=== PATIENT | female | born 1960 | race Caucasian/White ===

== ENCOUNTER 2019-04-26 16:04 | Emergency (ER) | payer OTHER, SELFPAY ==
--- NOTE | ~2019-04-26 | XR_ITS ---
EXAMINATION: XR foot RT min 3V DATE: 04/26/2019 16:30 INDICATION: Right foot pain TECHNIQUE: Dorsoplantar, lateral, and 2 oblique views of the right foot were obtained. COMPARISON: None. FINDINGS: There is no fracture, dislocation, or subluxation. Moderate osteoarthritis is noted at the first metatarsophalangeal joint. There is mild osteoarthritis in multiple interphalangeal joints. Mil d lateral foot soft tissue swelling is noted. IMPRESSION: 1. No acute osseous abnormality. Reviewed, dictated and finalized at location A.
[2019-04-26 16:12] VITALS: BP 146/93; PULSE 92; RESP 18; TEMP 36.4; O2SAT 97
--- NOTE | 2019-04-26 16:55 | ED.GENADULT ---
HPI - General Adult General Chief complaint: Extremity Injury, Lower Stated complaint: fall/rt foot injury History of Present Illness HPI narrative: Patient is a 58-year-old female who presents to the urgent care via POV for evaluation of right foot pain that initially occurred on 03/25/2019 after mis-stepping on stairs. She reports pain resolved although returned after yard work 8 days ago prompting today's visit. She reports her pain to be intermittent sharp and throbbing in nature. No relief with Aleve or applied ice. Denies rest, elevation, or compression therapy. Pertinent negatives: fever, chills, sweats, change in appetite, poor p.o. intake, malaise, calf tenderness, skin color changes, rash, warmth, swelling, numbness, tingling, loss of sensation, deformity, decreased range of motion, weakness, difficulty with ambulation/coordination, nausea, vomiting, lymphadenopathy, shortness of breath, chest pain, heart palpitations, and heart murmur. Related Data Home Medications Medication Instructions Recorded Confirmed No Home Medications 04/26/19 04/26/19 clonazepam 0.5 mg PO DAILY 04/26/19 04/26/19 naproxen sodium [Aleve] 220 mg PO Q12H PRN 04/26/19 04/26/19 venlafaxine [Effexor XR] 150 mg PO DAILY 04/26/19 04/26/19 Allergies Allergy/AdvReac Type Severity Reaction Status Date / Time metronidazole Allergy Unknown Rash Verified 04/26/19 16:19 Quinolones Allergy Unknown Rash Verified 04/26/19 16:19 Sulfa (Sulfonamide Allergy Unknown Rash Verified 04/26/19 16:19 Antibiotics) sulfamethizole Allergy Unknown Rash Verified 04/26/19 16:19 sulfamethoxazole Allergy Unknown Rash Verified 04/26/19 16:19 trimethoprim Allergy Unknown Rash Verified 04/26/19 16:19 Review of Systems Review of Systems: Narrative: All other systems reviewed and are negative [facility] Family History Family History Other Family history of malignant neoplasm Social History Social History Smoking status: Never smoker Alcohol intake: current Comments I have reviewed and agree with the patient's past medical, surgical, social, and family hx as documented by the RN. There is no relevant family history pertinent to the presenting complaint. Exam Narrative: Exam Narrative: GENERAL: Well-appearing, well-nourished, and in no acute distress. HEAD: Normocephalic, atraumatic. NECK: Supple. No Lymphadenopathy or nuchal rigidity appreciated. CHEST: Bilateral lung levin are clear to auscultation. No respiratory distress. No evidence of cough or pleuritic cp upon examination. HEART: Regular rate and rhythm. No murmur, gallop, or rub heard. EXTREMITIES: No evidence of injury, decreased ROM, swelling, cyanosis, hematoma, laceration, abrasion, deformity, rash, or puncture. Mild pain elicited with active and passive inversion range of motion. OM. No evidence of dislocation, ligament laxity, effusion, or pain at rest. Pulses palpable at 2+, strength 5/5, and cap refill < 3 seconds in affected extremity. DTRs normal. Gait normal. SKIN: Warm, dry, no rash. NEURO: No focal deficits. Alert and oriented x3. SPECIAL OBSERVATIONS: Smiling. Laughing. No evidence of discomfort. Course Vital Signs Vital signs: Vital Signs Temperature 97.6 F 04/26/19 16:12 Pulse Rate 92 04/26/19 16:12 Respiratory Rate 18 04/26/19 16:12 Blood Pressure 146/93 H 04/26/19 16:12 Pulse Oximetry 97 04/26/19 16:12 Temperature 97.6 F 04/26/19 16:12 Pulse Rate 92 04/26/19 16:12 Respiratory Rate 18 04/26/19 16:12 Blood Pressure 146/93 H 04/26/19 16:12 Pulse Oximetry 97 04/26/19 16:12 Medical Decision Making Medical Records Medical records reviewed: Yes I reviewed the patient's medical records. Vital Signs Vital Signs: Vital Signs Temperature 97.6 F 04/26/19 16:12 Pulse Rate 92 04/26/19 16:12 Respiratory Rate 18
== END 2019-04-26 17:04 | disposition home or self-care (01) ==
PROVIDERS: Emergency Provider Nurse Practitioner Family; PCP Internal Medicine
DX: S93.601A Unspecified sprain of right foot, initial encounter (principal); W10.9XXA Fall (on) (from) unspecified stairs and steps, initial encounter
CPT/HCPCS: 73630; 99213; G0463

== ENCOUNTER 2019-11-15 11:22 | Outpatient (CLI) | payer OTHER, SELFPAY ==
[2019-11-16 13:49] LABS: SARS-CoV-2 RNA PCR Negative
== END 2019-11-15 11:23 | disposition home or self-care (01) ==
LOC: CHSLAB 11:24
PROVIDERS: PCP Internal Medicine; Visit Provider Internal Medicine
DX: Z20.828 Contact with and (suspected) exposure to other viral communicable diseases (principal)
CPT/HCPCS: 87635; C9803; U0003

== ENCOUNTER 2019-12-08 15:32 | Outpatient (CLI) | payer OTHER, SELFPAY ==
[2019-12-09 13:32] LABS: SARS-CoV-2 RNA PCR Negative
== END 2019-12-08 15:33 | disposition home or self-care (01) ==
LOC: CHSLAB 15:35
PROVIDERS: PCP Internal Medicine; Visit Provider Internal Medicine
DX: Z20.828 Contact with and (suspected) exposure to other viral communicable diseases (principal)
CPT/HCPCS: 87635; C9803; U0003

== ENCOUNTER 2020-02-16 12:02 | Outpatient (CLI) | payer OTHER, SELFPAY ==
[2020-02-16 12:34] LABS: SARS-CoV-2 Ag Negative (Negative)
== END 2020-02-16 12:03 | disposition home or self-care (01) ==
PROVIDERS: PCP Internal Medicine; Visit Provider Internal Medicine
DX: Z20.822 Contact with and (suspected) exposure to COVID-19 (principal)
CPT/HCPCS: 87426; C9803

== ENCOUNTER 2020-02-16 12:42 | Outpatient (CLI) | payer OTHER, SELFPAY ==
[2020-02-17 19:23] LABS: SARS-CoV-2 RNA PCR Positive
== END 2020-02-16 12:43 | disposition home or self-care (01) ==
LOC: CHSLAB 12:44
PROVIDERS: PCP Internal Medicine; Visit Provider Internal Medicine
DX: U07.1 COVID-19 (principal)
CPT/HCPCS: C9803; U0003

== ENCOUNTER 2020-02-24 15:39 | Outpatient (CLI) | payer OTHER, SELFPAY ==
[2020-02-25 18:47] LABS: SARS-CoV-2 RNA PCR Negative
== END 2020-02-24 15:40 | disposition home or self-care (01) ==
LOC: CHSLAB 15:41
PROVIDERS: PCP Internal Medicine; Visit Provider Internal Medicine
DX: Z20.822 Contact with and (suspected) exposure to COVID-19 (principal)
CPT/HCPCS: C9803; U0003; U0005

== ENCOUNTER 2020-03-31 09:21 | Outpatient (CLI) | payer OTHER, SELFPAY ==
--- NOTE | ~2020-03-31 | US_ITS ---
EXAMINATION: US right upper quadrant DATE: 03/31/2020 10:15 INDICATION: Right upper quadrant pain, abnormal liver enzymes TECHNIQUE: Multiple grayscale and Doppler ultrasound images of the abdomen were obtained. COMPARISON: 03/07/[address], 11/02/2018 FINDINGS: The head, body, and tail of the pancreas are normal. There is a 1.7 cm cyst in the left hep atic lobe. The liver is otherwise normal with normal echogenicity and echotexture. No surface nodular ity. Normal hepatopetal flow in the main portal vein. There is a 4 mm stone in the gallbladder. There is no gallbladder wall thickening or pericholecystic fluid. The normal common bile duct measures 4 m m. There was no sonographic Narayan sign. IMPRESSION: 1. Cholelithiasis without evidence of cholecystitis. Reviewed, dictated and finalized at location A. 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
== END 2020-03-31 09:22 | disposition home or self-care (01) ==
LOC: CHSIMG 09:23
PROVIDERS: PCP Internal Medicine; Visit Provider Internal Medicine
DX: R94.5 Abnormal results of liver function studies (principal)
CPT/HCPCS: 76705

== ENCOUNTER 2020-06-10 09:59 | Outpatient (CLI) | payer OTHER, SELFPAY | END 2020-06-10 10:00 | disposition home or self-care (01) | LOC: CHSCOVIDVC 09:59 | PROVIDERS: PCP Internal Medicine | DX: Z23 Encounter for immunization (principal) | CPT/HCPCS: 0011A; 91301 ==

== ENCOUNTER 2020-07-08 10:05 | Outpatient (CLI) | payer OTHER, SELFPAY | END 2020-07-08 10:06 | disposition home or self-care (01) | LOC: CHSCOVIDVC 10:05 | PROVIDERS: PCP Internal Medicine | DX: Z23 Encounter for immunization (principal) | CPT/HCPCS: 0012A; 91301 ==

== ENCOUNTER 2020-11-01 08:20 | Outpatient (CLI) | payer OTHER, SELFPAY ==
--- NOTE | ~2020-11-01 | US_ITS ---
US abdomen complete EXAMINATION: US Abdomen Complete INDICATION: Hemorrhage of the rectus and anus PROCEDURE: Realtime High Resolution abdomen ultrasound. COMPARISON: No prior studies for comparison FINDINGS: There is a 4 mm gallbladder polyp. Common bile duct measures 4 mm. Liver echotexture is increased, consistent with fatty infiltration.. There is a 1.5 cm liver cyst. Pa ncreas within normal limits. Pancreatic tail is obscured by bowel gas. Spleen is unremarkeable. Yassine al echotexture is within normal limits bilaterally without hydronephrosis, contour deforming mass or renal stone. Right kidney measures 11.4 cm. Left kidney measures 10.9 cm. Visualized aspects of the aorta and IVC are within normal limits. Portal vein is patent. No sonograph ic Narayan's sign indicated by the technologist. IMPRESSION: 1: Gallbladder polyp measuring 4 mm. 2: Hepatic steatosis. Reviewed, dictated and finalized at location A.
== END 2020-11-01 08:21 | disposition home or self-care (01) ==
LOC: CHSIMG 08:21
PROVIDERS: PCP Internal Medicine; Visit Provider Internal Medicine
DX: K62.5 Hemorrhage of anus and rectum (principal)
CPT/HCPCS: 76700

== ENCOUNTER 2021-02-15 07:46 | Outpatient (CLI) | payer BC, SELFPAY ==
[2021-02-15 12:32] LABS: SARS-CoV-2 Ag Positive (Negative)
== END 2021-02-15 07:47 | disposition home or self-care (01) ==
LOC: CHSLAB 07:51
PROVIDERS: PCP Internal Medicine; Visit Provider Internal Medicine
DX: U07.1 COVID-19 (principal)
CPT/HCPCS: 87426; C9803

== ENCOUNTER → 2021-04-11 09:47 | Outpatient (CLI) | payer BC, SELFPAY ==
--- NOTE | ~2021-04-11 | XR_ITS ---
XR lumbar spine 2-3V DATE: 04/11/2021 10:19 INDICATION: Back pain TECHNIQUE: AP, lateral, coned lateral lumbosacral views COMPARISON: 05/28/2016 lumbar spine FINDINGS: Diffuse osteopenia. There is mild rotatory levoscoliosis of the lumbar spine. Acute lumbosacral angle. No fracture or bone destruction or spondylolisthesis. Lumbar and lumbosacral interspaces are relativ katlin preserved. The sacroiliac joints are intact. IMPRESSION: Osteopenia Scoliosis Reviewed, dictated and finalized at location A. SH OFF OPERATOR IMPRESSION: Osteopenia Scoliosis
--- NOTE | ~2021-04-11 | XR_ITS ---
XR thoracic spine 2V DATE: 04/11/2021 10:19 INDICATION: Back pain TECHNIQUE: Standing AP and lateral views COMPARISON: 05/28/2006 thoracic spine FINDINGS: Diffuse osteopenia. There is levoscoliosis of the lower cervical/upper thoracic spine and p rominent dextroscoliosis of the mid and lower thoracic spine. No fracture or dislocation or bone destruction is evident. The thoracic pedicles appear intact. No pa raspinal soft tissue thickening. IMPRESSION: Diffuse osteopenia. Prominent scoliosis Reviewed, dictated and finalized at location A. OING INSPECTOR
--- NOTE | ~2021-04-11 | XR_ITS ---
XR cervical spine 4-5V DATE: 04/11/2021 10:19 INDICATION: Neck pain radiating to right arm TECHNIQUE: AP, open-mouth, lateral, swimmer views, bilateral oblique views COMPARISON: None FINDINGS: C1 and C2 are normally aligned and the odontoid process is intact. No fracture or dislocation or locked facet. No prevertebral soft tissue swelling. No bony encroachmen t upon the neural foramina is detected. Cervical interspaces are well preserved. There is levoscoliosis of the upper thoracic spine and prominent dextroscoliosis of the mid to lower thoracic spine. IMPRESSION: No bony encroachment upon the cervical neural foramina Prominent thoracic scoliosis Reviewed, dictated and finalized at location A. NUE SETTLEMENTS ADMINISTRATOR
== END ==
PROVIDERS: PCP Internal Medicine; Visit Provider Chiropractor
DX: M54.2 Cervicalgia (principal); M41.86 Other forms of scoliosis, lumbar region; M85.88 Other specified disorders of bone density and structure, other site
CPT/HCPCS: 72050; 72070; 72100

== ENCOUNTER 2022-01-28 11:28 | Emergency (ER) | payer OTHER, SELFPAY ==
[2022-01-28 12:00] VITALS: BP 165/91; PULSE 86; RESP 16; TEMP 36.8; O2SAT 97
--- NOTE | 2022-01-28 12:22 | ED.GIBLEED ---
HPI - GI Bleed General Chief complaint: GI Bleed Stated complaint: bleeding from rectum after bowel movements Source: patient and RN notes reviewed Mode of arrival: ambulatory Limitations: no limitations History of Present Illness HPI Narrative: patient states that she has been having episodes for about 3 days where she has rectal bleeding. She has a bowel movement and then she can actually hear squirting blood into the toilet. It then stops on its own and the next time she has a bowel movement she has similar symptoms. She is having some mild cramping in her pelvis. She denies any nausea vomiting diarrhea. Denies any fever chills. complaint: gross hematochezia Onset (ago): day(s) (3) Pain Consistency: intermittent Severity: moderate Relieving factors: none Exacerbating factors: bowel movement Associated symptoms: abdominal pain (suprabic) Treatments Prior to Arrival: none Related Data Home Medications Medication Instructions Recorded Confirmed clonazepam 0.5 mg tablet 0.5 mg PO DAILY 04/26/19 01/28/22 venlafaxine 150 mg 150 mg PO DAILY 04/26/19 01/28/22 capsule,extended release 24 hr (Effexor XR) verapamil 120 mg 24 hr 120 mg PO DAILY 03/29/20 01/28/22 capsule,extended release Allergies Allergy/AdvReac Type Severity Reaction Status Date / Time metronidazole Allergy Unknown Rash Verified 01/28/22 12:06 Quinolones Allergy Unknown Rash Verified 01/28/22 12:06 Sulfa (Sulfonamide Allergy Unknown Rash Verified 01/28/22 12:06 Antibiotics) sulfamethizole Allergy Unknown Rash Verified 01/28/22 12:06 sulfamethoxazole Allergy Unknown Rash Verified 01/28/22 12:06 trimethoprim Allergy Unknown Rash Verified 01/28/22 12:06 Review of Systems Review of Systems: All systems reviewed & are unremarkable except as noted in HPI and below Constitutional: Constitutional: Denies chills and Denies fever(s) Gastrointestinal: Gastrointestinal: Denies constipation and Denies diarrhea PMFSH Past Medical History Medical History Anxiety Hypertension Surgical History Surgical History H/O shoulder surgery bilateral History of total abdominal hysterectomy Family History Family History (Updated 03/29/20 @ 09:41 by Vandana Orellana MA) Mother Hypertension Sibling Hypertension Other Family history of malignant neoplasm Social History Social History Smoking status: Never smoker Alcohol intake: current Substance use: never Exam Const: General: healthy appearing, no acute distress and alert Nutritional Appearance: well nourished Orientation/consciousness: patient oriented x3 Limitations: no limitations Other: female nurse in room during examination. HENMT: Head: normal to inspection Ears: external ears normal Mouth: Yes moist mucous membranes Eyes: Conjunctivae: conjunctivae normal Pupils: Equal, round and reactive pupils present EOM: EOMs intact bilaterally Neck: Neck: normal visual inspection Resp: Effort & Inspection: normal respiratory effort Auscultation: clear to auscultation bilaterally Cardio: Rate: regular rate Rhythm: regular rhythm GI: GI Palp: Yes Soft to palpation, Yes Tenderness to palpation present (GI) ( mild pelvis), Yes Guarding due to palpation present (GI) ( mild pelvis) and No Rebound tenderness present Auscultation: normal bowel sounds Rectal Exam: normal sphincter tone and Internal hemorrhoid(s) present Other: Disposable anoscope used for visualization friable rectal tissue above the pectinate line with a small tear in the mucosa. Nontender. Course Vital Signs Vital signs: Vital Signs Temperature 36.8 C 01/28/22 12:00 Pulse Rate 86 01/28/22 12:00 Respiratory Rate 16 01/28/22 12:00 Blood Pressure 165/91 H 01/28/22 12:00 Pulse Oximetry 97 01/28/22 12:00 Oxygen Delivery Room Air
--- NOTE | 2022-01-28 12:40 | PC.NURSE ---
Rn at bedside for chaperoned rectal exam
[2022-01-28 12:57] VITALS: BP 136/87; PULSE 86; RESP 16; TEMP 36.8; O2SAT 98
== END 2022-01-28 12:58 | disposition home or self-care (01) ==
PROVIDERS: Emergency Provider Emergency Medicine; PCP Internal Medicine
DX: K64.8 Other hemorrhoids (principal); F41.9 Anxiety disorder, unspecified; I10 Essential (primary) hypertension
CPT/HCPCS: 99283

== ENCOUNTER 2022-06-20 15:07 | Outpatient (CLI) | payer OTHER, SELFPAY ==
--- NOTE | ~2022-06-20 | XR_ITS ---
EXAMINATION: XR lumbar spine 2-3V DATE: 06/20/2022 15:27 INDICATION: Low back pain. Fall down stairs. TECHNIQUE: 3 views of lumbar spine were obtained. COMPARISON: Lumbar spine radiographs 04/11/2021, thoracic spine radiographs 04/11/2021, CT abdomen and pe lvis 04/28/2017 FINDINGS: There is 13 degrees levoscoliosis of lumbar spine. The T12 ribs are small. Vertebral body h eights are normal. There are chronic bilateral L5 pars defects. There is mildly decreased disc height at L1-L2, L2-L3, and L3-L4. There is multilevel mild facet joint osteoarthritis. IMPRESSION: 1. Mild lumbar spondylosis. 2. Lumbar levoscoliosis. 3. Chronic bilateral L5 pars defects. Reviewed, dictated and finalized at location E.
== END 2022-06-20 15:08 | disposition home or self-care (01) ==
PROVIDERS: PCP Internal Medicine; Visit Provider Nurse Practitioner Family
DX: M54.50 Low back pain, unspecified (principal); M43.06 Spondylolysis, lumbar region; M41.86 Other forms of scoliosis, lumbar region; M53.86 Other specified dorsopathies, lumbar region
CPT/HCPCS: 72100

== ENCOUNTER 2022-06-25 14:47 | Outpatient (RCR) | payer OTHER, SELFPAY ==
--- NOTE | 2022-06-25 16:12 | PTOPEVAL1 ---
Assessment and note entered by Jade Ornelas DPT Evaluation Information Assessment Status Evaluation Diagnosis low back pain Onset 06/21/22 Subjective Information Patient reports on 06/14/22 she reports she fell down 8 stairs and hit the concrete wall. She reports since then low back pain has signficantly increased. She reports she has scoliosis and has had chronic pain. She does report she had pain previously but was able to manage with pain meds to complete house hold and yard work. She reports that now the same pain meds are not helping her pain. She does report rotating ice and heat are giving her some relief. She reports difficuly with bending over, cleaning, cooking, and sitting for long periods of time. Reported Pain Level Pain Score 6: Self Report Assessment PT Clinical Summary Patient is a 61 year old female who presents to PT with low back pain following a fall down stairs. Patient demonstrates decreased B LE strength L>R, decreased lumbar ROM and tenderness at the lumbar paraspinals limiting her ability to cook, clean, and tolerate prolonged positioning. Patient would benefit from skilled PT to address impairments and return to PLOF. Plan of Care Interventions Electrical Stimulation,Gait Training,Hot Pack/Cold Pack,Manual Therapy,Mechanical Traction,Neuro Re- education,Patient/Caregiver Educati,Therapeutic Activities,Self-Care/Home Management PT Services Indicated Yes Treatment Frequency and 2x weekly for 12 visits Duration These treatments will address the objective and functional deficits as defined above. The patient will be advanced safely and appropriately in order for the patient to progress towards his/her prior level of function. Additional exercises will be introduced and as well as a comprehensive home exercise program upon discharge, if needed, ?to ensure carryover of functional gains achieved in the clinic. This treatment plan has been reviewed and agreement upon by the patient.
== END 2022-07-01 16:10 | disposition home or self-care (01) ==
LOC: CHSPT 14:47
PROVIDERS: PCP Internal Medicine; Visit Provider Internal Medicine
DX: M54.50 Low back pain, unspecified (principal)
CPT/HCPCS: 97014; 97110; 97140; 97161; G0283

== ENCOUNTER 2022-06-26 10:21 | Outpatient (CLI) | payer OTHER, SELFPAY ==
--- NOTE | ~2022-06-26 | DEXA_ITS ---
Bone Density Report Name: KIKE ROSSI Age: 61 Sex: Female Ethnicity: White Date of : 1960 Indication: postmenopausal; screening for osteoporosis; hysterectomy; Referring Provider: Tez Perez Study: Bone densitometry was performed. Exam Date: June 26, 2022 Accession number: [id number] Bone Density: Region BMD T-score Z-score Classification AP Spine(L1-L4) 0.818 -2.1 -0.7 Osteopenia Femoral Neck (Left) 0.621 -2.1 -0.8 Osteopenia Total Hip (Left) 0.793 -1.2 -0.3 Osteopenia Femoral Neck (Right) 0.596 -2.3 -1.0 Osteopenia Total Hip (Right) 0.725 -1.8 -0.9 Osteopenia Femoral Neck Mean 0.609 -2.2 -0.9 Osteopenia Total Hip Mean 0.759 -1.5 -0.6 Osteopenia World Health Organization criteria for BMD impression classify patients as: Normal (T-score at or above -1.0), Osteopenia (T-score between -1.0 and -2.5), or Osteoporosis (T-score at or below -2.5). 10-year Fracture Risk(1): Major Osteoporotic Fracture 10% Hip Fracture 1.6% Reported Risk Factors: [place] (), Neck BMD=0.596, BMI=25.7 (1) FRAX(R) Version 3.08. Fracture probability calculated for an untreated patient. Fracture probability may be lower if the patient has received treatment. Clinical Information Provided by Patient: Has used the following medications: Vitamin D, Calcium, multivitiman Has the following medical conditions: Hysterectomy Patient maximum height was 64 Menopause Age: 41 No regular weight bearing exercise Does not regularly consume dairy products Drinks caffeinated beverages Onset of menses at age 14 Number of children 2 Impression: The patient has low bone mass, based on the Right Femoral Neck T-score. Discussion: BONE DENSITY IS LOW AT ONE OR MORE SKELETAL SITES. This patient's lowest T-score is low at one or more skeletal sites. It meets the World Health Organization's (WHO) criteria for ?low bone mass? (T-score between -1.0 and -2.5). The patient's 10-year risk of fracture as calculated by FRAX is less than the threshold where pharmacological therapy is recommended by the National Osteoporosis Foundation (NOF). However, all treatment decisions require clinical judgment and consideration of individual patient factors, including patient preferences, comorbidities, previous drug use, risk factors not captured in the FRAX model (e.g., frailty, falls, vitamin D deficiency, increased bone turnover, interval significant decline in bone density) and possible under or overestimation of fracture risk by FRAX. The patient should follow a healthful lifestyle (good nutrition with adequate calcium and vitamin D, and appropriate weight-bearing exercise). Follow-Up: Consider repeating this study in 2 to 3 years to reassess this patient's status, or sooner if there is some new clini
== END 2022-06-26 10:22 | disposition home or self-care (01) ==
LOC: CHSIMG 10:22
PROVIDERS: PCP Internal Medicine; Visit Provider Internal Medicine
DX: M85.89 Other specified disorders of bone density and structure, multiple sites (principal)
CPT/HCPCS: 77080

== ENCOUNTER 2023-05-15 14:14 | Outpatient (CLI) | payer OTHER, SELFPAY ==
--- NOTE | ~2023-05-15 | XR_ITS ---
XR knee RT 3V DATE: 05/15/2023 14:45 INDICATION: Right knee pain TECHNIQUE: [place] and AP and lateral views COMPARISON: None FINDINGS: There are 3 anteroposterior directed screws through the anterior tibial tuberosity, extendi ng to the posterior cortex of the proximal tibia. There is moderately prominent periarticular spurring at the patellofemoral joint. There is mild parti cular spurring at the medial and to a lesser extent lateral compartments. Medial and lateral compartm ent joint spaces are relatively preserved. Suggestion of small suprapatellar knee joint effusion. No fracture, dislocation, periosteal reaction or bone destruction is detected. Osteopenia. IMPRESSION: Mild tricompartment osteoarthritis Postoperative change of anterior tibial tuberosity Osteopenia. Reviewed, dictated and finalized at location B.
== END 2023-05-15 14:15 | disposition home or self-care (01) ==
LOC: CHSIMG 14:18
PROVIDERS: PCP Internal Medicine; Visit Provider Internal Medicine
DX: M17.11 Unilateral primary osteoarthritis, right knee (principal); Z98.890 Other specified postprocedural states; M85.88 Other specified disorders of bone density and structure, other site
CPT/HCPCS: 73562

== ENCOUNTER 2023-08-11 06:51 | Day surgery (SDC) | payer OTHER, SELFPAY ==
[2023-07-11 15:03] VITALS: BMI 27.5
[2023-07-30 13:53] VITALS: BMI 27.6
--- NOTE | 2023-08-05 13:59 | PM.HPGS ---
History of Present Illness History of Present Illness Consent: Risks, benefits, and alternatives have been discussed and questions answered. Patient agrees to proceed with procedure. Chief complaint: History of Colon Polyps Narrative: Nina Charles is a 62 year old female Who has history of colon polyps removed 7 years ago. there were 3 Adenomatous polyps. Review of Systems Review of Systems: All systems reviewed & are unremarkable except as noted in HPI and below PMFSH Past Medical History Medical History Anxiety Hypertension Surgical History Surgical History H/O shoulder surgery bilateral History of total abdominal hysterectomy Family History Family History Mother Hypertension Sibling Hypertension Other Family history of malignant neoplasm Social History Social History Smoking status: Never smoker Alcohol intake: current Alcohol use details: occasional Substance use: never Substance use type: does not use Living arrangements: alone Spiritual care concerns: No Meds Home Medications and Allergies Home Medications Medication Instructions Recorded Confirmed Type clonazepam 0.5 mg tablet 0.5 mg PO DAILY 04/26/19 08/11/23 History eszopiclone 2 mg tablet (Lunesta) 2 mg PO HS 07/30/23 08/11/23 History venlafaxine 75 mg capsule,extended 75 mg PO DAILY 07/30/23 08/11/23 History release 24 hr Allergies Allergy/AdvReac Type Severity Reaction Status Date / Time metronidazole Allergy Unknown Rash Verified 08/11/23 07:47 Quinolones Allergy Unknown Rash Verified 08/11/23 07:47 Sulfa (Sulfonamide Allergy Unknown Rash Verified 08/11/23 07:47 Antibiotics) sulfamethizole Allergy Unknown Rash Verified 08/11/23 07:47 sulfamethoxazole Allergy Unknown Rash Verified 08/11/23 07:47 trimethoprim Allergy Unknown Rash Verified 08/11/23 07:47 Exam Resp: Auscultation: clear to auscultation bilaterally Cardio: Rate: regular rate Rhythm: regular rhythm GI: GI Palp: Yes Soft to palpation and No Tenderness to palpation present (GI) Assessment and Plan Assessment and plan (1) Personal history of colonic polyps: Code(s): Z86.010 - Personal history of colonic polyps Status: Acute Assessment and Plan: Colonoscopy with possible biopsy or polypectomy or cautery or injection of substances.
[2023-08-11 07:55] VITALS: BMI 26.6
[2023-08-11 07:56] VITALS: BP 133/84; PULSE 68; RESP 18; TEMP 36.6; O2SAT 100
--- NOTE | 2023-08-11 08:49 | P.PNAN_ITS ---
Anes - Initial Pre Proc Eval Procedure: Operation Date: 08/11/23 09:00 Proposed Procedures p Diagnostic Colonoscopy - Wilfredo Hinkle MD Date/Time: 08/11/23 08:49 Surgeon: Wilfredo Hinkle MD Pre Op Diagnosis: History of Colon Polyps Patient Data Age: 62 Gender: F Height: 1.63 m Weight: 70.6 kg Last Vital Signs Temp 36.6 C 08/11/23 07:56 Pulse 68 08/11/23 07:56 Resp 18 08/11/23 07:56 BP 133/84 08/11/23 07:56 Pulse Ox 100 08/11/23 07:56 O2 Del Method Room Air 08/11/23 07:56 Allergies Allergy/AdvReac Type Severity Reaction Status Date / Time metronidazole Allergy Unknown Rash Verified 08/11/23 07:47 Quinolones Allergy Unknown Rash Verified 08/11/23 07:47 Sulfa (Sulfonamide Allergy Unknown Rash Verified 08/11/23 07:47 Antibiotics) sulfamethizole Allergy Unknown Rash Verified 08/11/23 07:47 sulfamethoxazole Allergy Unknown Rash Verified 08/11/23 07:47 trimethoprim Allergy Unknown Rash Verified 08/11/23 07:47 Home Medications Medication Instructions Recorded Confirmed Type clonazepam 0.5 mg tablet 0.5 mg PO DAILY 04/26/19 08/11/23 History eszopiclone 2 mg tablet (Lunesta) 2 mg PO HS 07/30/23 08/11/23 History venlafaxine 75 mg capsule,extended 75 mg PO DAILY 07/30/23 08/11/23 History release 24 hr Patient hx anesthesia problems: none Family hx anesthesia problems: none Results Review: All pre-operative results and documents have been reviewed as part of the pre- operative evaluation. [facility] Past Medical History Medical History Anxiety Hypertension Surgical History Surgical History H/O shoulder surgery bilateral History of total abdominal hysterectomy Family History Family History Mother Hypertension Sibling Hypertension Other Family history of malignant neoplasm Social History Social History Smoking status: Never smoker Alcohol intake: current Alcohol use details: occasional Substance use: never Substance use type: does not use Living arrangements: alone Spiritual care concerns: No Anes - Eval Final PreProcedure Day of Procedure 08/11/23 08:49 Patient weight: normal Heart: regular rate and rhythm Lungs: clear to auscultation Airway: Mallampati scale class II Neurological: alert and oriented Last oral intake: >/= 8 hours ASA classification: II Emergent: no Anesthetic plan: proceed Anesthesia type and monitoring: general GIVS and standard monitoring Results Review: All pre-operative results and documents have been reviewed as part of the pre- operative evaluation. Informed Consent: The patient's anesthetic plan and its attendant risks and benefits were discussed with the patient/family/POA. Questions were solicited and answers provided to the satisfaction of the patient/family/POA.
[2023-08-11] MEDS: LACTATED RINGERS 1,000 ML 150 ML IV CONT (09:06)
[2023-08-11 09:34] VITALS: BP 119/68; PULSE 81; RESP 18; O2SAT 100
[2023-08-11 09:44] VITALS: BP 115/78; PULSE 68; RESP 18; O2SAT 97
--- NOTE | 2023-08-11 09:51 | WPDANESPN ---
Anes - Prog Note Post-Op Date/Time: 08/11/23 09:51 Cardiovascular status: normal Respiratory status: normal Airway patency: baseline Mental status: baseline Post-Op hydration status: normal Vital Signs: Last Vital Signs Temp 36.6 C 08/11/23 07:56 Pulse 68 08/11/23 09:44 Resp 18 08/11/23 09:44 BP 115/78 08/11/23 09:44 Pulse Ox 97 08/11/23 09:44 O2 Del Method Room Air 08/11/23 09:44 Pain Score (VAS): 0 I/O: Intake & Output 08/10/23 08/11/23 08/11/23 23:59 07:59 15:59 Intake Total 400 Balance 400 Patient Feedback: Patient satisfied with anesthetic care.
[2023-08-11 09:54] VITALS: BP 120/82; PULSE 73; RESP 20; O2SAT 97
== END 2023-08-11 10:00 | disposition home or self-care (01) ==
PROVIDERS: PCP Internal Medicine; Visit Provider Internal Medicine Gastroenterology
PROC: 0DJD8ZZ Inspection of Lower Intestinal Tract, Via Natural or Artificial Opening Endoscopic (ICD-10-PCS; CPT 45378; principal; 2023-08-11 09:00)
DX: Z12.11 Encounter for screening for malignant neoplasm of colon (principal); D12.5 Benign neoplasm of sigmoid colon; K57.30 Diverticulosis of large intestine without perforation or abscess without bleeding; D12.4 Benign neoplasm of descending colon; K64.8 Other hemorrhoids
CPT/HCPCS: 45385; 45380

== ENCOUNTER 2023-08-11 07:00 | Outpatient (NON) | payer OTHER, SELFPAY | END 2023-08-11 07:01 | disposition home or self-care (01) | LOC: ANHLAB 08-12 07:29 | PROVIDERS: PCP Internal Medicine; Visit Provider Internal Medicine Gastroenterology | DX: D12.4 Benign neoplasm of descending colon (principal); D12.5 Benign neoplasm of sigmoid colon; Z86.010 Personal history of colon polyps | CPT/HCPCS: 88305 ==

== ENCOUNTER 2024-04-14 08:50 | Outpatient (CLI) | payer OTHER, SELFPAY ==
--- NOTE | ~2024-04-14 | MM_ITS ---
EXAMINATION: MM screening dinah BI w nico HISTORY: Screening mammogram TECHNIQUE: Craniocaudal and mediolateral oblique 3-D tomosynthesis images were obtained and synthetic 2-D images were generated. CAD analysis was submitted and interpreted. COMPARISON: 09/01/2014 BREAST PARENCHYMAL COMPOSITION:Not Dense. The breasts are almost entirely fatty FINDINGS: There is asymmetry in the posterior, central left breast on CC view only. No parenchymal ab normality of the right breast. No suspicious microcalcifications. IMPRESSION: Posterior left breast asymmetry, as above. Spot compression views and possibly ultrasound are recomme nded for further evaluation. BI-RADS Category 0: Incomplete: Needs additional imaging evaluation. Reviewed, dictated and finalized at location . FACTURING ENGINEERING MANAGER IMPRESSION: Posterior left breast asymmetry, as above. Spot compression views and possibly ultrasound are recommended for further evaluation. BI-RADS Category 0: Incomplete: Needs additional imaging evaluation.
--- OUTSIDE RECORDS SUMMARY | 2024-04-14 09:13 | XMS_ITS | Clinical Summary ---
Author Organization [place] [address] [facility] Address [address] [place] [address] Care Team Providers Care Cardiovascular Radiologic Technologist Name Role Phone Tez Perez MD Primary Care Provider [phone] Allergies Active Allergy Reactions Criticality Noted Date Comments Sulfa (Sulfonamide Antibiotics) Rash Medium 01/11 Medications venlafaxine XR (EFFEXOR-XR) 150 mg 24 hr capsule Take 1 capsule (150 mg total) by mouth daily 12/16/2023 Active clonazePAM (KlonoPIN) 0.5 mg tablet Take 1 tablet (0.5 mg total) by mouth daily 01/06/2024 Active eszopiclone (LUNESTA) 3 mg tablet Take 1 tablet (3 mg total) by mouth nightly 11/23/2023 Active meloxicam (MOBIC) 15 mg tablet Take 1 tablet (15 mg total) by mouth daily 12/29/2023 Active valACYclovir (VALTREX) 500 mg tablet Take 1 tablet (500 mg total) by mouth as needed 12/16/2023 Active Active Problems No known active problems Social History Tobacco Use Types Packs/Day Years Used Date Smoking Tobacco: Never Assessed Comments Unknown Sex and Gender Information Value Date Recorded Sex Assigned at Not on file Legal Sex Female 12:09 PM CDT Gender Identity Not on file Sexual Orientation Not on file Obstetrics History Last Filed Vital Signs Vital Sign Reading Time Taken Comments Blood Pressure 142/88 01/06/2024 4:40 PM PRODUCE BUYER Pulse 96 01/06/2024 4:40 PM PRODUCE BUYER Temperature 36.6 C (97.9 F) 01/06/2024 4:40 PM PRODUCE BUYER Respiratory Rate 18 01/06/2024 4:40 PM PRODUCE BUYER Oxygen Saturation 97% 01/06/2024 4:40 PM PRODUCE BUYER Inhaled Oxygen Concentration - - Weight 74 kg (163 lb 3.2 oz) 01/06/2024 4:40 PM PRODUCE BUYER Height 162.6 cm (5' 4 ) 01/06/2024 4:40 PM PRODUCE BUYER Body Mass Index 28.01 01/06/2024 4:40 PM PRODUCE BUYER Plan of Treatment Health Maintenance Due Date Last Done Comments Breast Cancer Screening-Mammogram 1960 Cervical Cancer Screening 1960 Colon Cancer Screening-Colonoscopy 1960 Depression Screening 1960 Hepatitis C Screening 1962 Hepatitis B Screening 1980 Regular Well Visit/Exam 18-64 1980 Covid-19 Vaccine ( season) 2023 02/08/2021, 07/08/2020, 06/10/2020 Influenza Vaccine (#1) 2023 , 11/06/2018, 01/08/2017, Additional history exists DTaP/Tdap/Td Vaccine (2 - Td or Tdap) 01/10/2032 01/09/2022 Zoster Vaccine Completed 05/29/2022, 11/19/2021 Pneumococcal vaccine <65 Aged Out No longer eligible based on patient's age to complete this topic Insurance CHOICE PRF PPO [place] [facility] CMR PPO Care Teams Cardiovascular Radiologic Technologist Relationship Specialty Start Date End Date Tez Perez MD PCP - General Internal Medicine 06/04/22
--- OUTSIDE RECORDS SUMMARY | 2024-04-14 09:14 | XMS_ITS | Data Portability ---
Author Organization [facility], [address] [facility] Address [address] 4th [place] [address] Care Team Providers Care Floor Tiling Professional Name Role Phone ERNESTO AMAYA Primary Care Provider [phone] Assessment Encounter Date Assessment Date Assessment LastModified by Organization Details LastModified Time 07/04/2023 07/04/2023 History: Nina lloyd s a 62-year-old female referred by Dr. Amaya regarding right knee pain. She has had right knee pain for about three months. She recalls no specific injury. She says it feels like a muscle pain. Her knee, as well as leg has been swollen off and on. The swelling is actually down now. She did have a cortisone shot by per primary care physician about four weeks ago. There has been no relief of pain. She has been taking Aleve and Tylenol for pain without relief of pain. She has been icing. She has been doing a home exercise program, which includes walking, which does make it feel slightly better. She says that at night she has a sharp pain when she tries to move her leg. She otherwise has been icing her knee. It feels like a muscle pain. It is along the posterolateral aspect of her knee, as well as anteromedial. Past Surgical History: Bilateral subacromial decompressions, tibial tubercle [place] [address] Jairo White, as well as a hysterectomy. A complete 12-point review of systems is negative. Intake form dated today was independently reviewed and signed for review of symptoms, past medical history, social history, surgical history and family medical history. Physical examination: Head is atraumatic, normocephalic. Mood and affect are appropriate. The patient answers questions appropriately. The eyes are without scleral icterus. The chest exam shows no use of accessory muscles. The patient has full range of motion of the lumbar spine. Patient has normal sensation throughout the bilateral lower extremities. The skin is without edema or jaundice bilaterally. The lumbar exam shows no pain with straight leg raise testing. She has a well-healed incision about the right knee. There are prominent screws, which are non-painful. She has pain along the pes anserine bursa of the right knee. She has 0 to about 100 degrees range of motion of the right knee. Pain with forced hyperflexion and Stuart s maneuver, but no pain with forced with hyperextension of the right knee. No pain with forced hyperextension, flexion, or Stuart maneuver of the left knee. There is pain along the medial and lateral joint line of the right knee and negative left knee. She has no varus or valgus laxity of the bilateral knees. X-rays of the right knee were independently reviewed from [facility] and show mild medial and lateral compartment osteophytic changes. No significant loss of joint space. Postoperative changes of the tibial tubercle osteotomy. There is moderately severe patellofemoral joint osteoarthritis noted. Assessment: 1. Right knee pain with recurrent swelling and possible meniscus tear. 2. Right knee patellofemoral joint osteoarthritis. 3. History of right knee tibial tubercle osteotomy by Dr. Jairo White in 2007 at [facility]. Plan: Clinical findings were discussed with the patient. I recommended an MRI of the right knee. I have provided her with some home exercises. She can continue her Aleve and Tylenol for pain, as well as icing and walking capabilities. We will see her back after the MRI to discuss treatment options. [email or web address] Not available 07/06/2023 09:34:31 08/01/2023 08/01/2023 History: Nina returns for follow-up of her right knee. She is still having pain in her right knee. She had a cortisone injection in her right knee, which did not help. She has had physical therapy for the right knee, which did not help. She is also taking sjqw-jbt-bnyhmco medications, which do not help tremendously. The pain is deep and through the anterior aspect of the right knee. She had a previous tibial tubercle osteotomy by Dr. Smith some years ago. Physical Examination: She has moderate retropatellar crepitus of the right knee and mild on the left knee. She has a well healed incision about the anterior aspect of the right knee. She has prominent tibial tubercle of the right knee. No varus or valgus laxity. She has about 2 to 125 degrees range of motion of the right knee compared to 0 to 130 degrees range of motion of the left knee. X-rays of the right knee and MRI were independently reviewed from [facility] and show moderately severe right knee patellofemoral joint osteoarthritis. There is mild medial and lateral compartment osteoarthritis. Postoperative changes of tibial tubercle osteotomy are noted. Assessment: 1. Right knee patellofemoral joint osteoarthritis, moderately severe. 2. History of right knee tibial tubercle osteotomy. Plan: Clinical and radiographic findings were discussed with the patient. I do not see any obvious meniscus tear in either knee. There is some degenerative signal, but this may be artifact from the hardware. There is some significant osteoarthritis which is most profound, noted through the patellofemoral joint as expected, given her history of a tibial tubercle osteotomy. She has further conservative treatment, including physical therapy and cortisone injections, therefore I recommended a right knee Euflexxa injection series. We will seek authorization for this and proceed accordingly. [email or web address] Not available 08/01/2023 20:08:11 Plan of Treatment Reminders Order Date Submit Date Provider Last Modified By Organization Details Last Modified Time Details Appointments None recorded. Lab None recorded. Referral None recorded. Procedures None recorded. Surgeries None recorded. Imaging MRI, knee, w/o contrast 2023 024 [facility], [address] [place] [address], [id number], 4 16:25:00 Medication Orders meloxicam 15 mg tablet 2023 024 [id number], [address], [place], [phone], 4 10:22:23 Patient TargetsNo targets recorded. Patient InstructionsNo instructions recorded. Reason for Referral None Reported. Results Created Date Observation Date Name Description Value Unit Range Abnormal Flag Note LastModifiedBy Organization Detail LastModifiedTime 07/16/19 24 05/15/2023 XR, knee, 3 view No observ ation record ed. [email or web address] Not Available 2023 17:27:38 07/22/19 24 07/22/2023 MRI, knee, w/o contr ast [address] [address] Teleph one [phone] Name: Nina Charles [id number] am Date: 2023 Age: 62Phys ician: Maciej dillon MD, León : 1960Ex aminat ion: MRI KNEE WO RIGHT EXAM: Right Knee MRI TECHNI QUE: Multip lanar, multis equenc e MRI of the right knee was perfor med withou t contra st. COMPAR KRISTEL: Right knee radiog raphs 05/15/19 24 HISTOR Y: Right knee pain for 3 months . No known injury . Previo us tibial tubero sity osteot veronique in 2007 FINDIN GS: Joint spaces : Modera te joint effusi on with extens sathya synovi tis. Small gangli on along the tray room worker omedia l knee just medial to the poplit eal fossa on axial series 3 image 20, measur ing up to 1.2 cm. Crucia te ligame nts: Intact ACL and PCL. Medial knee: Hazy degene rative signal within the medial menisc us withou t distin ct linear tear or altere d medial menisc us morpho logy. Modera te chondr omalac ia, surfac e irregu larity , and thinni ng of cartil age in the medial compar tment. The MCL is intact . Latera l knee: Degene rative signal abnorm ality within the latera l menisc us withou t distin ct linear tear or altere d latera l menisc us morpho logy. There is modera te chondr omalac ia, surfac e irregu larity , and thinni ng of cartil age in the latera l compar tment. Irregu larity of the latera l tibial platea u may relate to an old healed fractu re. Anteri or knee: Severe patell ofemor al chondr omalac ia with overal l modera te cartil age thinni ng. Extens sathya fissur ing of patell ar cartil age. Normal patell ofemor al alignm ent. The javier ceps and patell ar tendon s are intact . Bones: No fractu re, contus ion, or neopla stic bone lesion . Sequel a of previo us tibial tubero sity osteot veronique and fixati on with screws , result ing in extens sathya proxim al tibia suscep tibili ty artifa ct. Neurov ascula r struct ures: Normal course , calibe r, and signal . Just deep to the tray room worker ior neurov ascula r bundle there is a 2 cm gangli on along the tray room worker ior joint capsul e best seen on bonilla l series 6 image 14. IMPRES KENTRELL: 1. Modera te to severe tricom partme ntal osteoa rthrit is of the knee, most pronou nced anteri denisa. 2. Degene rative signal abnorm ality in each menisc us but withou t any distin ct linear tear medial ly or latera lly. 3. Small gangli a along the tray room worker ior medial and tray room worker ior knee, larges t just deep to the neurov ascula r bundle measur ing up to 2 cm. 4. Modera te joint effusi on with synovi tis. 5. Postop erativ e change s of the tibial tubero sity with suscep tibili ty artifa ct. Electr onical ly signed in Sen cribe by: JANEL RIGGINS on:07/11 3:21 PM cc: Page PAGE [email or web address] [facility] [address] [place] [address], [id number], 07/26/2023 22:55:57 Result Notes None recorded. Problems Name Problem SNOMED Code Status Onset Date Resolution Date Notes Provider Name and Address Organization Details Recorded Time Lumbar radiculopa thy 450879114 Active 2023 Thuy Chao, HYDRAULIC AND PLUMBING INSTALLER, WORK OVER RIG OPERATOR [address] [place] [address], [phone] , [facility] 4 12:42:47 Pain of right knee joint 4935958244225 00 Active 2023 León Oliva MD [address] [place] [address], [phone] , [facility] 4 22:18:04 Osteoarthr itis of right knee joint 0480411495948 00 Active 2023 León Oliva MD [address] [place] [address], [phone] , [facility] 4 09:09:46 Problem Notes None recorded. Procedures Surgical History Date Name Laterality Status Provider Name and Address Organization Details Recorded Time 024 [place] Viscosupplementation III completed Thuy Chao APRN, WORK OVER RIG OPERATOR [address] [place] [address], [phone], [facility] 09/03/2023 16:14:47 024 SC Viscosupplementation II completed Thuy Chao APRN, WORK OVER RIG OPERATOR [address] [place] [address], [phone], [facility] 08/27/2023 16:36:28 024 SC Viscosupplementation I completed Thuy Chao APRN, WORK OVER RIG OPERATOR [address] [place] [address], [phone], [facility] 08/20/2023 17:02:55 008 osteotomy of tibia completed León Oliva MD [address] [place] [address], [phone], [facility] 07/04/2023 09:00:03 Colonoscopy with biopsy completed Not Available Health Note 06/30/2023 17:24:22 Total hysterectomy completed Not Available Health Note 06/30/2023 17:24:22 Imaging Results Imaging Date Name Status LastModified by Organiz ation Details LastModified Time 05/15/2023 XR, knee, 3 view completed [email or web address] Information not available 07/16/2023 17:27:38 07/22/2023 MRI, knee, w/o contrast completed [email or web address] [facility] [address] [place] [address], [id number], 07/26/2023 22:55:57 Procedure Notes None recorded. Medical Equipment None Reported. Allergies Allergen ID Allergen Name Allergen Category Reaction Reaction Severity Criticality Documentation Date Start Date Code Code System Note Provider Name and Address Organization Details Recorded Time 4898160 Substance with sulfonami de structure and antibacte rial mechanism of action (substanc e) medicatio n fever flushing rash Not available Not available Not available Not available 07/25/2023 60251 8003 SNOMED Not Available Not Available Not Available Medications Name Sig Start Date Stop Date Status Note LastModified by Organization Details LastModified Time venlafaxine ER 75 mg capsule,exte nded release 24 hr active Not Available Not Available Not Available meloxicam 15 mg tablet Take 1 tablet every day by oral route for 30 days. active Not Available Not Available No t Available famotidine 40 mg tablet TAKE 1 TABLET BY MOUTH EVERYDAY AT BEDTIME active Not Available Not Available No t Available alendronate 70 mg tablet PLEASE SEE ATTACHED FOR DETAILED DIRECTIONS active Not Available Not Available N ot Available clonazepam 0.5 mg tablet active Not Available Not Available Not Available venlafaxine ER 150 mg capsule,exte nded release 24 hr TAKE 1 CAPSULE BY MOUTH EVERY DAY active Not Available Not Available No t Available valacyclovir 500 mg tablet TAKE 1 TABLET BY MOUTH EVERY DAY active Not Available Not Available No t Available ciprofloxaci n 500 mg tablet TAKE 1 TABLET BY MOUTH EVERY 12 HOURS active Not Available Not Available No t Available methylpredni solone 4 mg tablets in a dose pack take as directed on pack 2023 active Not Available Not Available Not Avai lable eszopiclone 3 mg tablet active Not Available Not Available Not Available Vitals Date Recorded Body weight Heart rate Oxygen saturation Oxygen saturation in Arterial blood by Pulse oximetry Provider Name and Address Organization Details Last Updated DateTime 07/04/2023 57183.19 g 86 /min 96 % 96 % Rachna Cortez [facility] 07/04/2023 08:56:15 Date Recorded Body height Body mass index (BMI) Body weight Heart rate Oxygen saturation Oxygen saturation in Arterial blood by Pulse oximetry Provider Name and Address Organization Details Last Updated DateTime 162.56 cm 27.5 kg/m2 76511.7 8 g 92 /min 97 % 97 % Phoebe Ramos [facility] 10:02:46 Social History Question Answer Notes LastModified by Organizat ion Details LastModified Time Do You Have An Advance Directive? No [email or web address] Information not available 08/15/2023 What Is Your Level Of Alcohol Consumption? Occasional [email or web address] Information not available 08/15/2023 How Many Times Per Week Do You Consume Alcohol? 1-2 Times Per Week [email or web address] Information not available 08/15/2023 What Is Your Level Of Caffeine Consumption? Moderate [email or web address] Information not available 08/15/2023 Are You Currently Employed? 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 Less Than 1 Time Per Week [email or web address] Information not available 08/15/2023 Do You Have A Medical Power Of Rn On Site? No [email or web address] Information not available 08/15/2023 What Was The Date Of Your Most Recent Tobacco Screening? 08/20/2023 [email or web address] Information not available 08/15/2023 What Is Your Relationship Status? [email or web address] Information not available 08/15/2023 Do You Use Any Illicit Or Recreational Drugs? No [email or web address] Information not available 08/15/2023 Sex: Unknown Functional Status Question Answer Note LastModified by Organization D etails LastModified Time What is your exercise level? None [email or web address] Information not available 08/15/2023 Mental Status None recorded. Family History Relationship Description Onset Age of this Age Resolved Age Notes LastModified by Organization Details LastModified Time Mother Family history of malignant neoplasm [email or web address] Not available 2023 17:24:21 Mother Osteoporosis [email or web address] Not availa ble 06/30/2023 17:24:21 Mother Arthritis [email or web address] Not available 07/25/2023 12:13:59 Medical History Condition Response Attention-deficit Hyperactivity Disorder N High Blood Pressure N Thyroid Problems N COPD N Depression Y Anemia N Diabetes N Anxiety Disorder Y Bleeding Disorder N Arthritis N Hyperlipidemia N Cancer N Stroke N Asthma N Seizures N Heart Disease N Fibromyalgia N Osteoporosis N Kidney Disease N Gynecological HistoryNo gynecological history recorded. Obstetrics History GPAL:G 0 P 0 0 0 0 Immunizations Vaccine Type Date Status Note Provider Nam e and Address Organization Details Recorded Time Influenza, split virus, quadrivalent, preservative 6 completed Rachna Ballweg [facility] 07/04/2023 08:56:30 Influenza, MDCK, quadrivalent, PF 2 completed Rachna Ballweg [facility] 07/04/2023 08:56:30 zoster recombinant 3 completed Rachna Ballweg [facility] 07/04/2023 08:56:30 zoster recombinant 2 completed Rachna [facility] 07/04/2023 08:56:30 COVID-19, mRNA, LNP-S, PF, 100 mcg/0.5mL dose or 50 mcg/0.25mL dose 1 [facility] 08:56:30 COVID-19, mRNA, LNP-S, PF, 100 mcg/0.5mL dose or 50 mcg/0.25mL dose 1 [facility]/04/2023 08:56:30 COVID-19, mRNA, LNP-S, PF, 100 mcg/0.5mL dose or 50 mcg/0.25mL dose 1 completed Rachna [facility] 07/04/2023 08:56:30 [facility] 2 [facility] 07/04/2023 08:56:30 Influenza, split virus, trivalent, preservative 2 completed Rachna [place] [facility] 07/04/2023 08:56:30 Influenza, split virus, trivalent, preservative 4 completed Rachna Ballg [facility] 07/04/2023 08:56:30 Influenza, split virus, quadrivalent, PF 9 completed Rachna Cortez [facility] 07/04/2023 08:56:30 Influenza, split virus, quadrivalent, PF 7 completed Rachna Cortez [facility] 07/04/2023 08:56:30 Past Encounters Encounter ID Performer Location Encounter Start Date Encounter Closed Date Diagnosis/Indication Diagnosis SNOMED-CT Code Diagnosis ICD10 Code Diagnosis Note [id number] León Oliva MD [facility] [address] [place] [address],[address] [place] [address] 07/04/2023 08:47:10 07/04/2023 09:11:58 Pain of right knee joint 6126555746 22261 M25.561 Osteoarthr itis of right knee joint 9498466550 75092 M17.11 [id number] León Oliva MD [address] [facility] [address] [place] [address],[address] [place] [address] 08/01/2023 09:47:20 08/01/2023 10:27:35 Osteoarthritis of right knee joint 0763034756 56083 M17.11 [id number] Thuy Chao APRN, WORK OVER RIG OPERATOR [facility] [address], [place] [address] 08/20/2023 16:28:35 08/20/2023 17:33:10 Osteoarthritis of right knee joint 4436859831 58067 M17.11 [id number] Thuy Chao APRN, WORK OVER RIG OPERATOR [facility] [address], [place] [address] 08/27/2023 16:08:52 08/27/2023 16:55:55 Osteoarthritis of right knee joint 6997045367 50083 M17.11 [id number] Thuy Chao APRN, WORK OVER RIG OPERATOR [facility] [address], [place] [address] 09/03/2023 16:01:29 09/04/2023 16:45:51 Osteoarthritis of right knee joint 1917197030 82750 M17.11 Health Concerns Section Related Observation LastModified by Organization Detai ls LastModified Time None Recorded Concern Status LastModified by Organization Details LastModified Time None Recorded Advance Directives Directive N: Payers Encounter Date Sequence Insurance Name Policy Number Policy Hager Covered Member ID Hager Member ID Guarantor Name 07/04/2023 1 [facility] [id number] Nina Grman [id number] Nina Grman 08/01/2023 1 [facility] [id number] Nina Grman [id number] Nina Grman 08/20/2023 1 [facility] [id number] Nina Grman [id number] Nina Grman 08/27/2023 1 [facility] [id number] Nina Grman [id number] Nina Grman 09/03/2023 1 [facility] [id number] Nina Grman [id number] Nina Grman Notes Date Note Type Note Provider Name and Address Organization Details Recorded Time 4 text/html Nina Grmanis a 62 year oldfemalepresenting for care. León Oliva MD [address] [place] [address], [phone], [facility] 08/04/2023 15:28:32 4 text/html Nina Grmanis a 62 year oldfemalepresenting for care. Thuy Chao APRN, WORK OVER RIG OPERATOR [address] [place] [address], [phone], [facility] 08/21/2023 14:00:09 4 text/html Nina Grmanis a 62 year oldfemalepresenting for care. Thuy Chao APRN, WORK OVER RIG OPERATOR [address] [place] [address], [phone], [facility] 09/03/2023 17:25:52 OBGyn Episode No OBEpisode recorded.
--- OUTSIDE RECORDS SUMMARY | 2024-04-14 09:14 | XMS_ITS | Clinical Summary ---
Author Organization [facility] Address [address] [place] [address] Care Team Providers Care Sap Bw Architect Name Role Phone Tez Ventura MD Primary Care Provider [phone] Family History Medical History Relation Comments Breast Cancer Maternal Aunt 1 Breast Cancer Maternal Aunt 2 Colon Cancer Mother Relation Status Comments Maternal Aunt 1 Maternal Aunt 2 Alive Mother Social History Tobacco Use Types Packs/Day Years Used Date Smoking Tobacco: Never Assessed Comments Unknown Sex and Gender Information Value Date Recorded Sex Assigned at Not on file Legal Sex Female 8:54 PM CDT Gender Identity Not on file Sexual Orientation Not on file Plan of Treatment Health Maintenance Due Date Last Done Comments Cervical Cancer Screening Pap Smear (Age 30 to 64) Every 3 Years 1962 Colorectal Cancer Screening Colonoscopy (10 Years) 1962 Annual Physical 1965 Hepatitis C 1980 Cervical Cancer Screening Pap with HPV Testing (Age 30 to 64) Every 5 Years 1992 Cervical Cancer Screening with HPV 1992 Zoster Vaccines (1 of 2) 2012 COVID-19 Vaccine ( season) 2023 02/08/2021, 07/08/2020, 06/10/2020 Influenza Adult (#1) 2023 11/06/2018, 01/08/2017, 11/01/2015, Additional history exists Mammogram Screening 03/04/2024 03/04/2022, DTaP, Tdap and Td Vaccines (2 - Td or Tdap) 01/10/2032 01/09/2022 RSV Immunization or 60+ Years (1 - 1-dose 75+ series) 2037 Meningococcal B Vaccine Aged Out No l onger eligible based on patient's age to complete this topic Meningococcal Vaccine Aged Out No clarice aaron eligible based on patient's age to complete this topic Pneumococcal Vaccine: Pediatrics (0 to 5 Years) and At-Risk Patients (6 to 64 Years) Aged Out No longer eligible based on patient's age to complete this topic RSV Immunizations Under 20 Months Aged Out No longer eligible based on patient's age to complete this topic Procedures Procedure Name Priority Date/Time Associated Diagnosis Comments MG DIAG W YOANNA LT DIGI Routine 03/04/2022 9:16 AM TRANSPORT ASSISTANT Abnormal mammogram from Last 3 Months or Most Recently Relevant to Health Maintenance Results * MG DIAG W YOANNA LT DIGI (03/04/2022 9:16 AM TRANSPORT ASSISTANT) Anatomical Region Laterality Modality Breast Left Mammography 03/04/2022 9:42 AM TRANSPORT ASSISTANT Narrative 03/04/2022 9:46 AM TRANSPORT ASSISTANT EXAMINATION: Digital left diagnostic mammogram with 3-D tomography and left breast ultrasound. [id number] EXAM DATE/TIME: 03/04/2022 9:04 AM REASON FOR EXAM: ABNORMAL MAMMOGRAM COMPARISON: January 2022, August 2014, June 2013, December 2011, November 2010. TECHNIQUE: Digital diagnostic mammography of the left breast was performed in addition to 3-D Tomosynthesis technique. This study was read with the assistance of a computer-aided detection system. Grayscale and color Doppler images left breast. TISSUE DENSITY: There are scattered areas of fibroglandular density. FINDINGS: Within the left breast the asymmetry does persist after compression is applied. Targeted ultrasound is performed. At the 1:00 position 5 cm superior to the nipple there is an oval anechoic mass that is present. This posterior acoustic enhancement no internal color flow is present. This consistent with a simple cyst. This measures 5 mm. When reviewing the prior mammograms this is able to be visualized on the MLO and CC view of November 2010. =====IMPRESSION:===== No mammographic findings suggestive of malignancy. The mammographic mass corresponds to a simple cyst. Findings were reviewed and discussed with the patient in the presence of the green feed attendant (AB). ASSESSMENT: ACR BI-RADS 2 - BENIGN FINDING(S) Recommendation: 1: Routine Screening Bilateral COMMENTS: Ordered By: TEZ VENTURA Interpreted By: Wilfredo Root MD, 03/04/2022 9:42 AM Tez Ventura MD MAMMO Final Result from Last 3 Months or Most Recently Relevant to Health Maintenance Insurance [employer] Care Teams Sap Bw Architect Relationship Specialty Start Date End Date Tez Ventura MD [address] [place] [address] PCP - General INTERNAL MEDICINE 01/21/22
--- OUTSIDE RECORDS SUMMARY | 2024-04-14 09:14 | XMS_ITS | Referral Summary ---
Author Organization [place] [id number] [facility] Address [address] [place] [address] Care Team Providers Care Postdoctoral Scientist Name Role Phone Tez Perez MD Primary Care Provider [phone] Allergies Active Allergy Reactions Criticality Noted Date [...] on file Sexual Orientation Not on file Last Filed Vital Signs Vital Sign Reading Time Taken Comments Blood Pressure 142/88 01/06/2024 4:40 PM FACILITIES MAINTENANCE ASSISTANT Pulse 96 01/06/2024 4:40 PM FACILITIES MAINTENANCE ASSISTANT Temperature 36.6 C (97.9 F) 01/06/2024 4:40 PM FACILITIES MAINTENANCE ASSISTANT Respiratory Rate 18 01/06/2024 4:40 PM FACILITIES MAINTENANCE ASSISTANT Oxygen Saturation 97% 01/06/2024 4:40 PM FACILITIES MAINTENANCE ASSISTANT Inhaled Oxygen Concentration - - Weight 74 kg (163 lb 3.2 oz) 01/06/2024 4:40 PM FACILITIES MAINTENANCE ASSISTANT Height 162.6 cm (5' 4 ) 01/06/2024 4:40 PM FACILITIES MAINTENANCE ASSISTANT Body Mass Index 28.01 01/06/2024 4:40 PM FACILITIES MAINTENANCE ASSISTANT Plan of Treatment Not on file Insurance [place] CHO[place] [employer] COVENTRY ASO CMR PPO Care Teams Postdoctoral Scientist Relationship Specialty Start Date End Date Tez Perez MD PCP - General Internal Medicine 06/04/22
== END 2024-04-14 08:51 | disposition home or self-care (01) ==
PROVIDERS: PCP Internal Medicine; Visit Provider Internal Medicine
DX: Z12.31 Encounter for screening mammogram for malignant neoplasm of breast (principal); R94.2 Abnormal results of pulmonary function studies
CPT/HCPCS: 77063; 77067

== ENCOUNTER 2024-04-22 08:44 | Outpatient (CLI) | payer OTHER, SELFPAY ==
--- NOTE | ~2024-04-22 | MM_ITS ---
EXAMINATION: MM diagnostic dinah LT w nico HISTORY: Left breast asymmetry TECHNIQUE: Additional 3-D tomosynthesis images of the left breast were performed and synthetic 2-D im ages were generated. CAD analysis was submitted and interpreted. COMPARISON: 04/14/2024, 09/01/2014 BREAST PARENCHYMAL COMPOSITION:Not Dense. The breasts are almost entirely fatty FINDINGS: Left breast asymmetry posteriorly effaces with spot compression. No persistent mass lesion or distortion. No suspicious microcalcification. IMPRESSION: No mammographic evidence for malignancy. BI-RADS Category 1: Negative Reviewed, dictated and finalized at location .
--- OUTSIDE RECORDS SUMMARY | 2024-04-22 09:29 | XMS_ITS | Clinical Summary ---
Author Organization [facility] Address [address] [place] [address] Care Team Providers Care Necktie Operator Pockets And Pieces Name Role Phone Tez Ventura MD Primary Care Provider [phone] Family History Medical History Relation Comments Breast [...] YOANNA LT DIGI Routine 03/04/2022 9:16 AM DATA MANAGEMENT ANALYST Abnormal mammogram from Last 3 Months or Most Recently Relevant to Health Maintenance Results * MG DIAG W YOANNA LT DIGI (03/04/2022 9:16 AM DATA MANAGEMENT ANALYST) Anatomical Region Laterality Modality Breast Left Mammography 03/04/2022 9:42 AM DATA MANAGEMENT ANALYST Narrative 03/04/2022 9:46 AM DATA MANAGEMENT ANALYST EXAMINATION: Digital left diagnostic mammogram with 3-D tomography and left breast ultrasound. [id number] EXAM DATE/TIME: 03/04/2022 9:04 AM REASON FOR [...] the patient in the presence of the seismic prospecting observer helper (AB). ASSESSMENT: ACR BI-RADS 2 - BENIGN FINDING(S) Recommendation: 1: Routine Screening Bilateral COMMENTS: Ordered By: TEZ VENTURA Interpreted By: Wilfredo Root MD, 03/04/2022 9:42 AM Tez Ventura MD MAMMO Final Result from Last 3 Months or Most Recently Relevant to Health Maintenance Insurance [employer] Care Teams Necktie Operator Pockets And Pieces Relationship Specialty Start Date End Date Tez Ventura MD [address] [place] [address] PCP - General INTERNAL MEDICINE 01/21/22
--- OUTSIDE RECORDS SUMMARY | 2024-04-22 09:29 | XMS_ITS | Clinical Summary ---
Author Organization [place] [id number] [facility] Address [address] [place] [address] Care Team Providers Care House Worker General Name Role Phone Tez Perez MD Primary Care Provider [phone] Allergies Active Allergy Reactions Criticality Noted Date [...] Comments Blood Pressure 142/88 01/06/2024 4:40 PM CLERK FUNERAL DETAIL Pulse 96 01/06/2024 4:40 PM CLERK FUNERAL DETAIL Temperature 36.6 C (97.9 F) 01/06/2024 4:40 PM CLERK FUNERAL DETAIL Respiratory Rate 18 01/06/2024 4:40 PM CLERK FUNERAL DETAIL Oxygen Saturation 97% 01/06/2024 4:40 PM CLERK FUNERAL DETAIL Inhaled Oxygen Concentration - - Weight 74 kg (163 lb 3.2 oz) 01/06/2024 4:40 PM CLERK FUNERAL DETAIL Height 162.6 cm (5' 4 ) 01/06/2024 4:40 PM CLERK FUNERAL DETAIL Body Mass Index 28.01 01/06/2024 4:40 PM CLERK FUNERAL DETAIL Plan of Treatment Health Maintenance Due Date [...] Insurance CHOICE PRF [place] [facility] CMR PPO Care Teams House Worker General Relationship Specialty Start Date End Date Tez Perez MD PCP - General Internal Medicine 06/04/22
--- OUTSIDE RECORDS SUMMARY | 2024-04-22 09:29 | XMS_ITS | Referral Summary ---
Author Organization [place] [id number] [facility] Address [address] [place] [address] Care Team Providers Care Camera Repair Technician Name Role Phone Tez Perez MD Primary Care Provider [phone] Allergies Active Allergy Reactions Criticality Noted Date [...] Comments Blood Pressure 142/88 01/06/2024 4:40 PM PRODUCER Pulse 96 01/06/2024 4:40 PM PRODUCER Temperature 36.6 C (97.9 F) 01/06/2024 4:40 PM PRODUCER Respiratory Rate 18 01/06/2024 4:40 PM PRODUCER Oxygen Saturation 97% 01/06/2024 4:40 PM PRODUCER Inhaled Oxygen Concentration - - Weight 74 kg (163 lb 3.2 oz) 01/06/2024 4:40 PM PRODUCER Height 162.6 cm (5' 4 ) 01/06/2024 4:40 PM PRODUCER Body Mass Index 28.01 01/06/2024 4:40 PM PRODUCER Plan of Treatment Not on file Insurance [place] [employer] COVENTRY ASO CMR PPO Care Teams Camera Repair Technician Relationship Specialty Start Date End Date Tez Perez MD PCP - General Internal Medicine 06/04/22
--- OUTSIDE RECORDS SUMMARY | 2024-04-22 09:29 | XMS_ITS | Data Portability ---
Author Organization [facility], [address] [facility] ([place] Address [address] [place] [address] Care Team Providers Care Data Migration Lead Name Role Phone ERNESTO AMAYA Primary Care Provider Assessment Encounter Date Assessment Date Assessment LastModified [...] the right knee were independently reviewed from [facility] and show mild medial and lateral compartment osteophytic changes. No significant loss of joint space. Postoperative changes of the tibial tubercle osteotomy. There is moderately severe patellofemoral joint osteoarthritis noted. Assessment: 1. Right knee pain with recurrent swelling and possible meniscus tear. 2. Right knee patellofemoral joint osteoarthritis. 3. History of right knee tibial tubercle osteotomy by Dr. Jairo White in [address] [facility]. Plan: Clinical findings were discussed with the [...] did not help. She is also taking [id number] medications, which do not help tremendously. The [...] knee and MRI were independently reviewed from [facility] and show moderately severe right knee patellofemoral [...] seek authorization for this and proceed accordingly. [email or web address] Not available 08/01/2023 20:08:11 Plan of Treatment Reminders Order Date Submit Date Provider Last Modified By Organization Details Last Modified Time Details Appointments None recorded. Lab None recorded. Referral None recorded. Procedures None recorded. Surgeries None recorded. Imaging MRI, knee, w/o contrast 2023 024 [facility], [address] [place] [address], [id number], 4 16:25:00 Medication Orders meloxicam 15 mg tablet 2023 024 [id number], [address], [place], [id number], 4 10:22:23 Patient TargetsNo targets recorded. Patient InstructionsNo instructions recorded. Reason for Referral None Reported. Results Created Date Observation Date Name Description Value Unit Range Abnormal Flag Note LastModifiedBy Organization Detail LastModifiedTime 07/16/19 24 05/15/2023 XR, knee, 3 view No observ ation record ed. [email or web address] Not Available 2023 17:27:38 07/22/19 24 07/22/2023 MRI, knee, w/o contr ast [address] [address] Teleph one [phone] Name: Nina Charles [id number] am Date: 2023 [...] synovi tis. Small gangli on along the assistant professor of spanish omedia l knee just medial to the [...] and signal . Just deep to the assistant professor of spanish ior neurov ascula r bundle there is a 2 cm gangli on along the assistant professor of spanish ior joint capsul e best seen on bonilla l series 6 image 14. IMPRES KENTRELL: 1. Modera te to severe tricom partme ntal osteoa rthrit is of the knee, most pronou nced anteri denisa. 2. Degene rative signal abnorm ality in each menisc us but withou t any distin ct linear tear medial ly or latera lly. 3. Small gangli a along the assistant professor of spanish ior medial and assistant professor of spanish ior knee, larges t just deep to the neurov ascula r bundle measur ing up to 2 cm. 4. Modera te joint effusi on with synovi tis. 5. Postop erativ e change s of the tibial tubero sity with suscep tibili ty artifa ct. Electr onical ly signed in Sen cribe by: JANEL RIGGINS on:07/11 3:21 PM cc: Page PAGE 1 of [facility] 1 [email or web address] [facility] [address] [place] [address], [id number], 07/26/2023 22:55:57 Result Notes None recorded. Problems Name Problem SNOMED Code Status Onset Date Resolution Date Notes Provider Name and Address Organization Details Recorded Time Lumbar radiculopa thy 691251010 Active 2023 Thuy Chao, BROKERAGE CLERK, SOCK LINING STITCHER [address] [place] [address], [phone] , [facility] 4 12:42:47 Pain of right knee joint 7570383348006 00 Active 2023 León Oliva MD [address] [place] [address], [phone] , [facility] 4 22:18:04 Osteoarthr itis of right knee joint 6116773443739 00 Active 2023 León Oliva MD [address] [place] [address], [phone] , [facility] 4 09:09:46 Problem Notes None recorded. Procedures Surgical History Date Name Laterality Status Provider Name and Address Organization Details Recorded Time 024 SC Viscosupplementation III completed Thuy Chao APRN, SOCK LINING STITCHER [address] [place] [address], [phone], [facility] 09/03/2023 16:14:47 024 SC Viscosupplementation II completed Thuy Chao APRN, SOCK LINING STITCHER [address] [place] [address], [phone], [facility] 08/27/2023 16:36:28 024 SC Viscosupplementation I completed Thuy Chao APRN, SOCK LINING STITCHER [address] [place] [address], [phone], [facility] 08/20/2023 17:02:55 008 osteotomy of tibia completed León Oliva MD [address] [place] [address], [phone], [facility] 07/04/2023 09:00:03 Colonoscopy with biopsy completed Not Available Health Note 06/30/2023 17:24:22 Total hysterectomy completed Not Available Health Note 06/30/2023 17:24:22 Imaging Results Imaging Date Name Status LastModified by Organiz ation Details LastModified Time 05/15/2023 XR, knee, 3 view completed [email or web address] Information not available 07/16/2023 17:27:38 07/22/2023 MRI, knee, w/o contrast completed [email or web address] [facility] [address] [place] [address], [id number], 07/26/2023 22:55:57 Procedure Notes None recorded. Medical Equipment None Reported. Allergies Allergen ID Allergen Name Allergen Category Reaction Reaction Severity Criticality Documentation Date Start Date Code Code System Note Provider Name and Address Organization Details Recorded Time 9240688 Substance with sulfonami de structure and antibacte rial mechanism of action (substanc e) medicatio n fever flushing rash Not available Not available Not available Not available 07/25/2023 [address]4839 8003 SNOMED Not Available Not Available Not [...] Address Organization Details Last Updated DateTime 07/04/2023 00226.19 g 86 /min 96 % 96 % Rachna Cortez [facility] 07/04/2023 08:56:15 Date Recorded Body height Body mass index (BMI) Body weight Heart rate Oxygen saturation Oxygen saturation in Arterial blood by Pulse oximetry Provider Name and Address Organization Details Last Updated DateTime 162.56 cm 27.5 kg/m2 68279.7 8 g 92 /min 97 % 97 % Phoebe Ramos [facility] 10:02:46 Social History Question Answer Notes LastModified [...] not available 08/15/2023 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 Less Than 1 Time Per Week [email or web address] Information not available 08/15/2023 Do You Have A Medical Power Of Film Library Clerk? No [email or web address] Information not available 08/15/2023 What [...] available 07/25/2023 12:13:59 Medical History Condition Response High Blood Pressure N COPD N Depression Y Anxiety Disorder Y Arthritis N Cancer N Stroke N Fibromyalgia N Kidney Disease N Bleeding Disorder N Asthma N Seizures N Attention-deficit Hyperactivity Disorder N Thyroid Problems N Anemia N Diabetes N Hyperlipidemia N Heart Disease N Osteoporosis N Gynecological HistoryNo gynecological history recorded. Obstetrics History GPAL:G 0 P 0 0 0 0 Immunizations Vaccine Type Date Status Note Provider Nam e and Address Organization Details Recorded Time Influenza, split virus, quadrivalent, preservative 6 completed Rachna Ballweg [facility] 07/04/2023 08:56:30 Influenza, MDCK, quadrivalent, PF 2 completed Rachna Ballweg [facility] 07/04/2023 08:56:30 zoster recombinant 3 completed Rachna Ballweg [facility] 07/04/2023 08:56:30 zoster recombinant 2 completed Rachna [facility] 07/04/2023 08:56:30 COVID-19, mRNA, LNP-S, PF, 100 mcg/0.5mL dose or 50 mcg/0.25mL dose 1 [facility] 08:56:30 COVID-19, mRNA, LNP-S, PF, 100 mcg/0.5mL dose or 50 mcg/0.25mL dose 1 [facility] 07/04/2023 08:56:30 COVID-19, mRNA, LNP-S, PF, 100 mcg/0.5mL dose or 50 mcg/0.25mL dose 1 [facility]04[facility]20[facility] 08:56:30 T[facility]ap 2 [facility] 07/04/2023 08:56:30 Influenza, split virus, trivalent, preservative 2 completed Rachna Ballweg [facility] 07/04/2023 08:56:30 Influenza, split virus, trivalent, preservative 4 completed Rachna Ballweg [facility] 07/04/2023 08:56:30 Influenza, split virus, quadrivalent, PF 9 completed Rachna Cortez [facility] 07/04/2023 08:56:30 Influenza, split virus, quadrivalent, PF 7 completed Rachna Cortez [facility] 07/04/2023 08:56:30 Past Encounters Encounter ID Performer Location Encounter Start Date Encounter Closed Date Diagnosis/Indication Diagnosis SNOMED-CT Code Diagnosis ICD10 Code Diagnosis Note [id number] León Oliva MD [facility] [address] [place] [address],[address] [place] [address] 07/04/2023 08:47:10 07/04/2023 09:11:58 Pain of right knee joint 1352565890 21926 M25.561 Osteoarthr itis of right knee joint 6437467943 49167 M17.11 [id number] León Oliva MD [address] [facility] [address] [place] [address],[address] [place] [address] 08/01/2023 09:47:20 08/01/2023 10:27:35 Osteoarthritis of right knee joint 7684121242 16100 M17.11 [id number] Thuy Chao APRN, SOCK LINING STITCHER [facility] ([place] [address], [place] [address] 08/20/2023 16:28:35 08/20/2023 17:33:10 Osteoarthritis of right knee joint 8417776213 57811 M17.11 [id number] Thuy Chao APRN, SOCK LINING STITCHER [facility] [address], [address] [place] [address] 08/27/2023 16:08:52 08/27/2023 16:55:55 Osteoarthritis of right knee joint 6190568669 29215 M17.11 [id number] Thuy Chao APRN, SOCK LINING STITCHER [facility] [address], [place] [address] 09/03/2023 16:01:29 09/04/2023 16:45:51 Osteoarthritis of right knee joint 0673915777 42653 M17.11 Health Concerns Section Related Observation LastModified by Organization Detai ls LastModified Time None Recorded Concern Status LastModified by Organization Details LastModified Time None Recorded Advance Directives Directive N: Payers Encounter Date Sequence Insurance Name Policy Number Policy Hager Covered Member ID Hager Member ID Guarantor Name 07/04/2023 1 [facility] [id number] Nina Grman [id number] Nina Grman 08/01/2023 1 [facility] [id number] Nina Grman [id number] Nina Grman 08/20/2023 1 [facility] [id number] Nina Grman [id number] Nina Grman 08/27/2023 1 [facility] [id number] Nina Grman [id number] Nina Grman 09/03/2023 1 [facility] [id number] Nina Grman [id number] Nina Grman Notes Date Note Type Note Provider Name and Address Organization Details Recorded Time 4 text/html Nina Grmanis a 62 year oldfemalepresenting for care. León Oliva MD [address] [place] [address], [phone], [facility] 08/04/2023 15:28:32 4 text/html Nina Grmanis a 62 year oldfemalepresenting for care. Thuy Chao APRN, SOCK LINING STITCHER [address] [place] [address], [phone], [facility] 08/21/2023 14:00:09 4 text/html Nina Grmanis a 62 year oldfemalepresenting for care. Thuy Chao APRN, SOCK LINING STITCHER [address] [place] [address], [phone], [facility] 09/03/2023 17:25:52 OBGyn Episode No OBEpisode recorded.
== END 2024-04-22 08:45 | disposition home or self-care (01) ==
LOC: CHSIMG 08:45
PROVIDERS: PCP Internal Medicine; Visit Provider Internal Medicine
DX: R92.8 Other abnormal and inconclusive findings on diagnostic imaging of breast (principal)
CPT/HCPCS: 77061; 77065; G0279